=== PATIENT | female | born 1945 | race Caucasian/White ===

== ENCOUNTER 2020-04-25 14:43 | Outpatient (CLI) | payer MEDICARE, OTHER ==
[2020-04-25 15:21] LABS: CREATININE 0.7 mg/dL (0.4-1.0)
[2020-04-25] MEDS ORDERED: GADOBUTROL 7.5 MMOL/7.5 ML VIAL ONE (16:10)
[2020-04-25] MEDS ORDERED: GADOBUTROL 7.5 MMOL/7.5 ML VIAL IVP ONE (17:26)
--- NOTE | 2020-04-29 13:50 | MRI Report ---
BREAST MRI OF BOTH BREASTS: 04/25/2020 CLINICAL: Right breast cancer. Comparison is made to exams dated: 02/09/2020 ultrasound biopsy, 02/09/2020 mammogram, 01/29/2020 ultra sound, 01/29/2020 mammogram, 12/29/2019 mammogram, and 12/23/2018 mammogram - [facility]. TECHNIQUE: The patient was placed prone in a dedicated breast imaging coil. Precontrast axial STIR and 3D FLASH without fat saturation sequences were obtained. Both before and after bolus injection of contrast, sequential 1-minute axial 3D FLASH with fat saturation sequences for 3 time points, with subtraction images and maximum intensity projections (MIPs) generated. Delayed sagittal FLASH images with fat s aturation were also obtained. Computer-aided detection, including computer algorithm analysis of MRI image data for lesion detectio n and characterization, pharmacokinetic analysis, with further physician review for interpretation, w as performed. FINDINGS: Image quality: Excellent. There is mild background parenchymal enhancement. Right breast: A biopsy clip is seen in the right breast posterior depth corresponding to the prior b iopsy with pathology results indicating malignant ductal carcinoma in situ. There is surrounding irre gularly shaped, segmental, non-mass hyperenhancement spanning an area of approximately 3.4 x 1.9 x 3. 8 cm. The area of enhancement abuts the right anterior chest wall without a clear fat plane, but no d efinite enhancement of the adjacent pectoralis major muscle. No significantly enlarged right axillary lymphadenopathy is identified by cross-sectional imaging cri teria. Left breast: Chronic postsurgical changes are seen in the left breast and left axilla. No suspicious mass or abnormal non-mass enhancement is seen in the left breast. There is no significant left axill lalo lymphadenopathy. Miscellaneous: A non-enhancing T1-hypointense lesion is seen in the right mediastinum adjacent to th e ascending aorta, measuring 2.2 x 1.5 x 3.7 cm (image 43 of series 401 and image 7 of series 703). T he sternum and included upper abdomen appear normal. IMPRESSION: KNOWN BIOPSY PROVEN MALIGNANCY 1. Biopsy-proven malignant ductal carcinoma in situ (DCIS) corresponds to an irregular segmental area of non-mass enhancement in the right breast 10 oclock position posterior depth measuring approximat ailyn 3.4 x 1.9 x 3.8 cm. The enhancement abuts the pectoralis major muscle without definite muscular e nhancement, but invasion cannot be excluded. 2. Chronic postsurgical changes in the left breast and left axilla. 3. No significantly enlarged right or left axillary lymphadenopathy. 4. Non-enhancing lesion in the mediastinum to the right of the ascending aorta is nonspecific, but ma y represent a thymic lesion or pericardial recess, among other etiologies, versus less likely an enla rged internal mammary lymph node. Contrast-enhanced CT of the chest is recommended for further evalua tion. BIRADS 6: Known biopsy-proven malignancy. COMMENT: The imaging literature indicates that a negative contrast breast MRI examination has a high sensitivity and a moderate specificity for detecting and excluding invasive carcinomas to a detection threshold of 3-5 mm; nonetheless, appropriate clinical and mammographic follow-up are recommended. MRI is not sensitive for detecting DCIS (ductal carcinoma in situ) and may not detect large invasive neoplasms that show only minimal enhancement such as mucinous carcinoma. If there are suspicious rosina cifications or clinically worrisome palpable masses, then biopsy should still be considered. Invasiv e neoplasms can be hidden by co-existent and benign enhancement caused by mastitis, hormone therapy e ffects, radiation therapy, , and recent biopsy or surgery. False positive examinations can occur in a number of circumstances, including breasts that have recently been subject to invasive pro cedures and those that contain atypical ductal hyperplasia, hormonally stimulated glandular tissue, f at necrosis, or radial scars. This exam was interpreted at Station ID: [id number]. Electronically Signed By: Flaquito Foster M.D. ar/:04/29/2020 13:34:50 copy to: Vilma Albert ACR BI-RADS Category 6: Known biopsy proven malignancy 3346F BI-RADS CATEGORY: (6) - 6 Unspecified - other recall n/a LATERALITY: (B)
== END 2020-04-25 14:44 | disposition home or self-care (01) ==
LOC: LAB 14:43
PROVIDERS: ATTEND Surgery
DX: D05.11 Intraductal carcinoma in situ of right breast (principal); R93.89 Abnormal findings on diagnostic imaging of other specified body structures
CPT/HCPCS: 36415; 77049; 82565; A9585

== ENCOUNTER 2020-05-09 10:23 | Outpatient (CLI) | payer MEDICARE, OTHER | END 2020-05-09 10:24 | disposition home or self-care (01) | LOC: COV 10:23 | PROVIDERS: ATTEND Surgery | DX: Z01.812 Encounter for preprocedural laboratory examination (principal); D05.11 Intraductal carcinoma in situ of right breast; Z20.822 Contact with and (suspected) exposure to COVID-19 ==

== ENCOUNTER 2020-05-13 07:32 | Day surgery (SDC) | payer MEDICARE, OTHER ==
[2020-05-13] MEDS ORDERED: LACTATED RINGERS 1,000 ML IV ONE ×2 (08:05→13:50)
[2020-05-13] MEDS ORDERED: LIDOCAINE 1% 50 ML MDV ONE (10:33)
[2020-05-13] MEDS ORDERED: BUPIVACAINE 0.5% PF 30 ML VIAL ONE (10:34)
--- NOTE | 2020-05-13 10:39 | ANESTHESIA ---
Pre-Anesthesia VS, & Labs - Diagnosis right breast DCIS - Procedure Right mastectomy and sentinel node biopsy Vital Signs: Temp Pulse Resp BP Pulse Ox 36.5 C 73 12 163/88 H 100 05/13/20 08:05 05/13/20 08:05 05/13/20 08:05 05/13/20 08:05 05/13/20 08:05 Height: 5 ft 5 in Weight (kg): 49.5 kg Body Mass Index: 18.1 BMI Classification: Underweight - NPO >8 hours - Is Patient ?: No Home Medications and Allergies Home Medications: Ambulatory Orders Ashwagandha Root Extract 300 mg PO BID 05/06/20 Cholecalciferol [Vitamin D3] 50 mcg PO DAILY 05/06/20 Multivitamin 1 each PO DAILY 05/06/20 [place]-3 Fatty Acids [Fish Oil Concentrate] 1,000 mg PO DAILY 05/06/20 Thyroid [[place] Thyroid] 60 mg PO DAILY 05/06/20 Ashwagandha Root Extract 300 mg PO BID 05/06/20 Cholecalciferol [Vitamin D3] 50 mcg PO DAILY 05/06/20 Multivitamin 1 each PO DAILY 05/06/20 [place]-3 Fatty Acids [Fish Oil Concentrate] 1,000 mg PO DAILY 05/06/20 Thyroid [[place] Thyroid] 60 mg PO DAILY 05/06/20 Allergies/Adverse Reactions: Allergies Allergy/AdvReac Type Severity Reaction Status Date / Time No Known Drug Allergies Allergy Verified 05/06/20 10:58 Anes History & Medical History - Anesthetic History Anesthesia Complications: reports: No previous complications - Medical History Cardiovascular: reports: High cholesterol Pulmonary: reports: None Gastrointestinal: reports: None Urinary: reports: Kidney stones Neuro: reports: None Musculoskeletal: reports: None Endocrine/Autoimmune: reports: HyPOthyroidism Skin: reports: None Smoking Status: Former smoker Psychosocial: reports: No issues indicated History of Cancer?: Yes - Surgical History General: Appendectomy, Colonoscopy, Other Eyes Ears Nose Throat (EENT): Tonsil/Adenoidectomy Gynecologic: Tubal ligation Exam General: Alert, Oriented x3, Cooperative, No acute distress Dental: WNL Mouth Openin Fingerbreadth Neck Mobility: Normal Mallampati classification: II Thyromental Distance: 4-6 cm Mental/Cognitive Status: Alert/Oriented X3, Normal for patient Plan Anesthesia Type: General Consent for Procedure(s) Verified and Reviewed: Yes Code Status: Attempt Resuscitation ASA classification: 2-Mild systemic disease Is this case an emergency?: No
[2020-05-13] MEDS ORDERED: LIDOCAINE-MPF 2% 5 ML VIAL ONE ×2 (10:42→12:12)
[2020-05-13] MEDS ORDERED: ONDANSETRON 4 MG/2 ML VIAL ONE (10:42)
[2020-05-13] MEDS ORDERED: PROPOFOL 200 MG/20 ML VIAL IVP ONE ×2 (10:42→12:10)
[2020-05-13] MEDS ORDERED: DEXAMETHASONE 4 MG/ML VIAL ONE ×2 (10:42→12:59)
[2020-05-13] MEDS ORDERED: MIDAZOLAM 2 MG/2 ML VIAL ONE ×2 (10:43→12:09)
[2020-05-13] MEDS ORDERED: diphenhydrAMINE INJ 50 MG/ML VIAL ONE (10:43)
[2020-05-13] MEDS ORDERED: fentaNYL 100 MCG/2 ML VIAL ONE ×2 (10:43→12:10)
[2020-05-13] MEDS ORDERED: ceFAZolin 2 GM/50 ML 2 GM/50 ML BAG IV ONE (11:26)
[2020-05-13] MEDS ORDERED: NALOXONE 0.4 MG/ML VIAL IVP PRN (12:53)
[2020-05-13] MEDS ORDERED: fentaNYL 100 MCG/2 ML VIAL IVP PRN (12:53)
[2020-05-13] MEDS ORDERED: ATROPINE ABBOJECT 1 MG/10 ML SYRINGE IVP PRN (12:53)
[2020-05-13] MEDS ORDERED: HYDROmorphone 0.5 MG/0.5 ML SYRINGE IVP PRN (12:53)
[2020-05-13] MEDS ORDERED: ONDANSETRON 4 MG/2 ML VIAL IVP PRN ×2 (12:53→13:59)
[2020-05-13] MEDS ORDERED: MORPHINE 2 MG/ML CARPUJECT IVP PRN (12:53)
[2020-05-13] MEDS ORDERED: LIDOCAINE 2%-EPI 1:100000 20 ML MDV SUBQ ONE ×2 (12:53)
[2020-05-13] MEDS ORDERED: LACTATED RINGERS 1,000 ML IV SCH (13:00)
--- NOTE | 2020-05-13 13:54 | OPERATIVE REPORT ---
Operative Report - General Procedure Date: 05/13/20 Planned Procedure: Right simple mastectomy and sentinel node biopsy Pre-Op Diagnosis: Extensive right breast DCIS Procedure Performed: Right simple mastectomy and sentinel node biopsy Post Op Diagnosis: Same - Procedure Note Primary Surgeon: Regla Anesthesia Provider: ANITRA Palomo Anesthesia Technique: General LMA, Local Pathology: 1. [place] node to pathology in formalin. Target count > [id number]. Background in axilla 6-26. Room background 0 2. Right breast to pathology in formalin. Estimated Blood Loss (mL): 50 Drain/Tube Type: Rad drain (19 F Rad drain in the inframammary pocket) Findings: 1 sentinel node - grossly normal. Shoddy palpable axillary nodes Complications: None apparent - Other Other Information/Narrative: After obtaining informed consent, the patient was brought to the operating room and placed in the supine position on the operating table. Following successful induction of general endotracheal anesthesia, appropriate padding of all bony prominences, and placement of appropriate monitors, the left breast was prepped and draped in the standard surgical fashion. A timeout was held per scope protocol. All elements of the surgical safety checklist were followed before, during, and after the procedure. We began the procedure with a sentinel node dissection. The site of the brightest node had been marked in radiology with 2 skin marker axis. The neoprobe was used to identify the site of greatest uptake at level 2 in the patient's axilla. The patient is quite thin and has minimal axillary tissue. An incision was created over this area of uptake and carried through the skin and subcutaneous tissue to enter the axillary node packet. The sentinel node was easily identified. It was grossly normal in appearance. It was carefully dissected free from surrounding stop structures sharply, all lymphatics and vasculature were addressed with clips prior to division. The node was liberated into the field. 10-second counts are recorded. Survey of the axilla revealed no other targets. Background in the axilla was checked and found to be 8-41. Background in the room was 0. The axillary incision was then closed in 2 layers with Vicryl and Monocryl sutures. We began the procedure by infiltrating half percent Marcaine plain throughout the subcutaneous tissue of the breast and beneath the pectoralis major and minor muscles As well as portions of the serratus anterior. This was to done to provide a field block.An incision was fashioned elliptically. As this was not intended to be a skin sparing procedure and was done for hygiene purposes, every attempt was made to create a completely flat scar. This incision was then completed with a 10 blade scalpel. It was carried through the skin and subcutaneous tissue. Traction and countertraction were then used to divide the underlying breast tissue from the overlying dermis from the level of the inc ision to the clavicle superiorly medially to the sternum inferiorly to the inframammary fold and lateral to the posterior axillary line. Once a circumferential dissection had been obtained, the breast was removed in a medial to lateral fashion. All perforators were addressed with sutures or with cautery prior to division. The breast was then marked with a short stitch superior and a long stitch lateral. The wound was irrigated with warm water and aspirated free of all fluid and particulate matter. It was checked once again for hemostasis and touched up in just a couple of places with cautery. A 15 [place] Rad drain was placed in the inframammary pocket and brought out inferior medially. It was sewn into place. The skin edges were then closed in an interrupted fashion with Vicryl suture and the Endo Close device was used to approximate the skin. The wound was cleaned and the Debby wound management device was then placed to the overlying skin and hooked up to suction. A good seal was obtained. All sponge, needle, and instrument counts were correct at the conclusion of the case. The patient was allowed to wake from anesthesia without difficulty and taken to the postanesthesia care unit in good condition.
[2020-05-13] MEDS ORDERED: oxyCODONE 5 MG TABLET PO PRN (13:59)
[2020-05-13] MEDS ORDERED: IBUPROFEN 600 MG TABLET PO PRN (13:59)
[2020-05-13] MEDS ORDERED: ACETAMINOPHEN 325 MG TABLET PO PRN (13:59)
[2020-05-13 14:46] VITALS: BP 146/77
[2020-05-13] MEDS ORDERED: oxyCODONE 5 MG TABLET ONE (15:07)
--- NOTE | 2020-05-13 15:07 | Nuclear Medicine Report ---
PROCEDURE: Lymph Node Scintigraphy INDICATIONS: RT BREAST CA RADIOPHARMACEUTICAL: 0.5-1.0 mCi Millipore filtered Tc-99m sulfur colloid. TECHNIQUE: The area around the nipple was prepped and draped in a sterile fashion. Tc-99m sulfur colloid was in jected intra-dermally in the outer edge of the areola in the right breast. Images were obtained subs equently. A body contour outline was obtained. FINDINGS: There is a lymph node in the ipsilateral axilla. IMPRESSION: A sentinel lymph node is identified in the right axilla. Reviewed by: Lilliana Peterson MD on 05/13/2020 3:06 PM PST Approved by: Lilliana Peterson MD on 05/13/2020 3:06 PM PST Station ID: [id number]
--- NOTE | 2020-05-13 17:32 | ANESTHESIA POST OP EVALUATION ---
Anesthesia Post Eval - Post Anesthesia Eval Vitals: Last Vital Signs Temp 36.9 C 05/13/20 14:25 Pulse 65 05/13/20 14:46 Resp 12 05/13/20 14:46 BP 146/77 H 05/13/20 14:46 Pulse Ox 100 05/13/20 14:46 CV Function Including HR & BP: positive: Stable Pain Control: positive: Satisfactory Nausea & Vomiting: positive: Negative Mental Status: positive: Baseline Respiratory Status: Airway Patent Hydration Status: Satisfactory Anesthesia Complications: positive: None
== END 2020-05-13 07:33 | disposition home or self-care (01) ==
LOC: SDS 07:32
PROVIDERS: ATTEND Surgery
PROC: 0HBT0ZX Excision of Right Breast, Open Approach, Diagnostic (ICD-10-PCS; 2020-05-13)
PROC: 0HBT0ZZ Excision of Right Breast, Open Approach (ICD-10-PCS; principal; 2020-05-13 11:45)
DX: C50.911 Malignant neoplasm of unspecified site of right female breast (principal); Z17.0 Estrogen receptor positive status [ER+]; I10 Essential (primary) hypertension; Z87.891 Personal history of nicotine dependence; E03.9 Hypothyroidism, unspecified
CPT/HCPCS: 19303; 38525; 78195; 88307; 88341; 88342; 88360; A9270; J0690; J7120

== ENCOUNTER 2020-07-22 12:47 | Outpatient (CLI) | payer MEDICARE, OTHER ==
--- NOTE | 2020-07-22 16:30 | DEXA Report ---
PROCEDURE: Dexa Spine and/or Hip INDICATIONS: POST MENOPAUSAL, HX OF BREAST CANCER TECHNIQUE: Dual energy x-ray absorptiometry (DXA) was performed on a [employer] System. Regions measur ed are the AP Spine, femoral neck, and if needed forearm. COMPARISON: None. FINDINGS: Lumbar Spine: Bone Mineral Density 1.081 g/cm/cm,T score -0.8, normal Left Hip: Bone Mineral Density 0.738 g/cm/cm,T score -2.1, osteopenia Left Femoral Neck: Bone Mineral Density 0.681 g/cm/cm, T score -2.6, osteoporosis (T score greater or equal to -1.0: NORMAL) (T score from -1.1 to -2.4: OSTEOPENIA) (T score less than or equal to -2.5 to: OSTEOPOROSIS) Impression: Osteoporosis. Patients with diagnosis of osteoporosis or osteopenia should have regular bone mineral density assess ment. For those eligible for Medicare, routine testing is allowed once every 2 years. Testing frequ ency can be increased for patients who have rapidly progressing disease or for those who are receivin g medical therapy to restore bone mass. Reviewed by: Kirsty Palomino MD, PhD on 07/22/2020 4:29 PM PDT Approved by: Kirsty Palomino MD, PhD on 07/22/2020 4:29 PM PDT Station ID: [id number]
== END 2020-07-22 12:48 | disposition home or self-care (01) ==
LOC: DI 12:47
PROVIDERS: ATTEND Internal Medicine Hematology & Oncology
DX: M81.0 Age-related osteoporosis without current pathological fracture (principal)

== ENCOUNTER 2023-01-06 11:07 | Outpatient (CLI) | payer MEDICARE, OTHER ==
--- NOTE | 2023-01-07 12:34 | Mammography Report ---
UNILATERAL LEFT DIGITAL SCREENING MAMMOGRAM 3D/2D: 01/06/2023 CLINICAL: Routine screening. Personal history of bilateral breast cancer. Comparison is made to exams dated: 11/26/2021 mammogram, 01/30/2021 mammogram - [facility] , and 01/29/2020 mammogram - [facility]. The left breast is heterogeneously dense, which may obscure small masses (category c / 51-75% glandul ar tissue). There is a possible developing irregular high density asymmetry with an indistinct and circumscribed margin in the left breast anterior depth superior region seen on the mediolateral oblique view only. This is more prominent and increased in size. No other significant masses or calcifications are seen in the breast. There are stable post surgical findings. IMPRESSION: INCOMPLETE: NEEDS ADDITIONAL IMAGING EVALUATION The possible developing irregular high density asymmetry in the left breast is indeterminate. Additi onal views with possible ultrasound are recommended. This exam was interpreted at Station ID: [id number]. NOTE: For mammograms, a report in lay terms will be sent to the patient. Approximately 15% of breast malignancies will not be visualized mammographically. In the management of a palpable breast mass, a negative mammogram must not discourage biopsy of a clinically suspicious lesion. Electronically Signed By: Christy hilliard/:01/06/2023 20:38:11 copy to: LAUREL MARSHALL BI-RADS Category 0: Incomplete 3340F PARENCHYMAL PATTERN: (D) - The breast(s) demonstrate(s) heterogeneously dense fibroglandular bryan mackenzie. BI-RADS CATEGORY: (0) - 0 Ultrasound [id number] Immediate follow-up LATERALITY: (B)
== END 2023-01-06 11:08 | disposition home or self-care (01) ==
LOC: DI 11:07
PROVIDERS: ATTEND Internal Medicine Hematology & Oncology
DX: Z12.31 Encounter for screening mammogram for malignant neoplasm of breast (principal)

== ENCOUNTER 2023-02-01 12:20 | Outpatient (CLI) | payer MEDICARE, OTHER ==
--- NOTE | 2023-02-02 13:06 | Mammography Report ---
UNILATERAL LEFT DIGITAL DIAGNOSTIC MAMMOGRAM 3D/2D WITH SPOT COMPRESSION: 02/01/2023 CLINICAL: Patient returns today to evaluate an asymmetry in the left breast. Personal history of bila teral breast cancer. Comparison is made to exams dated: 01/06/2023 mammogram - [facility], 12/19/[address] MRI, 11/26/2021 mammogram, 01/30/2021 mammogram, 01/30/2021 breast MRI - [facility], and 04/25/2020 breast MRI - [facility]. The left breast is heterogeneously dense, which may obscure small masses (category c / 51-75% glandul ar tissue). There is a possible developing irregular equal density asymmetry in the left breast anterior depth blevins perior region seen on the mediolateral oblique view only. This is less prominent. No other significant masses or calcifications are seen in the breast. IMPRESSION: INCOMPLETE: NEEDS ADDITIONAL IMAGING EVALUATION The possible developing irregular equal density asymmetry in the left breast is indeterminate. An ul trasound is recommended. This exam was interpreted at Station ID: [id number]. NOTE: For mammograms, a report in lay terms will be sent to the patient. Approximately 15% of breast malignancies will not be visualized mammographically. In the management of a palpable breast mass, a negative mammogram must not discourage biopsy of a clinically suspicious lesion. Electronically Signed By: Flaquito lewis/tejas:02/01/2023 16:25:31 copy to: LAUREL MARSHALL BI-RADS Category 0: Incomplete 3340F PARENCHYMAL PATTERN: (D) - The breast(s) demonstrate(s) heterogeneously dense fibroglandular parmasha mackenzie. BI-RADS CATEGORY: (0) - 0 Ultrasound [id number] Immediate follow-up LATERALITY: (L)
--- NOTE | 2023-02-02 13:06 | Ultrasound Report ---
LIMITED ULTRASOUND OF LEFT BREAST: 02/01/2023 CLINICAL: Patient returns today to evaluate a focal asymmetry in the left breast. Comparison is made to exams dated: 01/06/2023 mammogram, 02/01/2023 mammogram - [facility], 11/26/2021 mammogram, and 01/30/2021 mammogram - [facility]. Color flow ultrasound of the left breast 12-1 o'clock region was performed. Chowdary scale images of th e real-time examination were reviewed. No significant abnormalities were seen sonographically in the left breast. IMPRESSION: NEGATIVE There is no sonographic evidence of malignancy. There is no abnormality seen in the left breast to correspond with the mammography finding which is c onsistent with normal fibroglandular tissue. Return to annual mammogram screening schedule is recommended. This exam was interpreted at Station ID: [id number]. Electronically Signed By: Flaquito lewis/tejas:02/01/2023 16:27:32 copy to: LAUREL RENEE letter sent: No_Letter Ultrasound BI-RADS: 1 Negative BI-RADS CATEGORY: (1) - 1 Mammogram [id number] return to screening LATERALITY: (B)
== END 2023-02-01 12:21 | disposition home or self-care (01) ==
LOC: DI 12:20
PROVIDERS: ATTEND Internal Medicine Hematology & Oncology
DX: R92.8 Other abnormal and inconclusive findings on diagnostic imaging of breast (principal); Z85.3 Personal history of malignant neoplasm of breast